=== PATIENT | female | born 1995 | race American Indian/Alaskan Native ===

== ENCOUNTER 2018-05-17 11:30 | Emergency (ER) | payer OTHER ==
[2018-05-17 11:47] VITALS: BP 129/86
[2018-05-17 14:30] LABS: Bilirubin,Urine NEG (Negative); Blood,Urine MOD (Negative); Color,Urine Yellow (Yellow); Hyaline Casts,Urine 1 /LPF; Mucus,Urine FEW /HPF; Protein,Urine <15 mg/dL mg/dL (Negative); Urobilinogen,Urine < 2.0 mg/dL (<2.0)
--- NOTE | 2018-05-17 14:51 | Emergency Department Report ---
ED Upper Extremity Inj HPI - General Chief Complaint: Pain General Stated Complaint: WRIST PAIN Time Seen by Provider: 05/17/18 14:23 Source: patient Mode of arrival: Ambulatory Limitations: No Limitations - History of Present Illness Initial Comments: Ms Dillon is a 22 year-old woman who presents with left wrist pain. 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 Has been having severe left wrist pain since sunday. Some tingling in her thumb. No weakness. pain with movement. Better with rest. no injury. No other complaints. bought a wrist splint that has been helping her. - Related Data Allergies Allergy/AdvReac Type Severity Reaction Status Date / Time No Known Allergies Allergy Unverified 05/17/18 13:31 ED Review of Systems ROS: Stated complaint: WRIST PAIN Other details as noted in HPI Comment: All other systems reviewed and negative ED Past Medical Hx - Past Medical History Previous Medical History?: Yes Additional medical history: acute kidney problem years ago - Surgical History Past Surgical History?: No - Social History Smoking Status: Current Some Day Smoker Substance Use Type: None ED Physical Exam - General Limitations: No Limitations General appearance: alert, in no apparent distress - Head Head exam: Present: atraumatic, normocephalic - Cardiovascular Cardiovascular Exam: Present: regular rate, normal rhythm - Extremities Exam Extremities exam: Present: normal inspection, full ROM, normal capillary refill , other (left volar wrist ttp. pain with extension, tenderness to palption. NV itnact, subjective tingling over thumb. brisk cap refill in all digits) - Neurological Exam Neurological exam: Present: alert, altered. Absent: motor sensory deficit - Skin Skin exam: Present: warm, dry, intact ED Course Vital Signs 05/17/18 11:37 Temperature 97.9 F Pulse Rate 85 Respiratory 16 Rate Blood Pressure 129/86 O2 Sat by Pulse 100 Oximetry ED Medical Decision Making - Medical Decision Making ms Dillon is a 22 year-old woman who presents with left wrist pain. Works with her hands. No trauma. Exam and story consistent with carpal tunnel syndrome. NV intact left hand. Has cock-up wrist splint. Will take NSAIDs. given pcp follow- up for referral to PT and or orthopedic surgery if needed. give work note to rest hand. given extensive care instructions, return precautions. dc to home Critical care attestation.: If time is entered above; I have spent that time in minutes in the direct care of this critically ill patient, excluding procedure time. ED Disposition Clinical Impression: Carpal tunnel syndrome of left wrist Disposition: DC-01 TO HOME OR SELFCARE Is pt being admited?: No Does the pt Need Aspirin: No Condition: Stable Instructions: Carpal Tunnel Syndrome (ED) Referrals: PRIMARY CARE, [Primary Care Provider] - 3-5 Days Forms: Work/School Release Form(ED)
== END 2018-05-17 14:44 | disposition home or self-care (01) ==
LOC: ED 11:30
DX: G56.02 Carpal tunnel syndrome, left upper limb (principal); F17.200 Nicotine dependence, unspecified, uncomplicated
CPT/HCPCS: 81001